=== PATIENT | female | born 1945 | race Caucasian/White ===

== ENCOUNTER 2021-05-29 05:50 | Day surgery (SDC) | payer OTHER, BC ==
[2021-05-28 11:09] VITALS: BMI 21.6
[2021-05-29] MEDS ORDERED: PROPOFOL 20 ML ONE (07:17)
[2021-05-29] MEDS ORDERED: MIDAZOLAM HCL 2 MG/2 ML SINGLE DOSE VIAL ONE (07:17)
[2021-05-29] MEDS ORDERED: LIDOCAINE HCL 2% (20ML MULTI-DOSE VIAL) ONE (07:18)
[2021-05-29] MEDS ORDERED: LIDOCAINE HCL/PF 2% SDV 5ML VIAL ONE (07:19)
[2021-05-29 08:45] VITALS: BP 115/65; PULSE 74; TEMP 98.1
== END 2021-05-29 08:45 | disposition home or self-care (01) ==
LOC: FASU 05:50
PROVIDERS: ATTEND Orthopaedic Surgery Hand Surgery
PROC: 01N50ZZ Release Median Nerve, Open Approach (ICD-10-PCS; principal; 2021-05-29 07:51)
DX: G56.01 Carpal tunnel syndrome, right upper limb (principal)